=== PATIENT | male | born 1970 | race Caucasian/White ===

== ENCOUNTER 2020-02-24 11:44 | Emergency (ER) | payer OTHER, SELFPAY ==
[~2020-02-24] VITALS: Ht 167.6 cm; Wt 90.4 kg
[2020-02-24 11:48] VITALS: BP 154/69
--- NOTE | 2020-02-24 12:34 | NUR ---
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
--- NOTE | 2020-02-24 12:57 | NUR ---
RAD IN ROOM.
--- NOTE | 2020-02-24 14:11 | NUR ---
Patient given discharge instructions and they have confirmed that they understand the instructions. Patient ambulatory with steady gait.
== END 2020-02-24 14:12 | disposition home or self-care (01) ==
LOC: ED 13:28
DX: S62.326A Displaced fracture of shaft of fifth metacarpal bone, right hand, initial encounter for closed fracture (principal); X58.XXXA Exposure to other specified factors, initial encounter; Y93.89 Activity, other specified; Y92.098 Other place in other non-institutional residence as the place of occurrence of the external cause; Y99.8 Other external cause status
CPT/HCPCS: 29125; 99283